=== PATIENT | female | born 1995 | race African-American/Black ===

== ENCOUNTER 2022-12-16 08:55 | Emergency (ER) | payer OTHER ==
[~2022-12-16] VITALS: Ht 154.9 cm; Wt 46.0 kg
[2022-12-16 09:52] LABS: CLARITY URINE CLEAR (CLEAR); COLOR URINE RED (YELLOW); KETONES URINE NEGATIVE (NEGATIVE); LEUKOCYTE ESTERASE URINE 1+ (NEGATIVE); NITRITE URINE NEGATIVE (NEGATIVE); OCCULT BLOOD URINE 3+ (NEGATIVE); PH URINE >=9.0 (4.5-8.0); PROTEIN URINE 1+ (NEGATIVE); SPECIFIC GRAVITY URINE 1.007 (1.005-1.030); UROBILINOGEN URINE 0.2 E.U./dL (0.2-1.0)
[2022-12-16 10:41] LABS: BASOPHILS % 0.5 % (0.0-2.0); EOSINOPHILS % 0.4 % (0.0-5.0); HEMOGLOBIN. 9.8 g/dL (12.0-16.0); LYMPHOCYTES % 17.7 % (20.0-50.0); MEAN CORPUSCULAR HEMOGLOBIN 26.2 pg (28.0-32.0); MEAN CORPUSCULAR VOLUME 80.3 fL (81.0-99.0); MEAN PLATELET VOLUME 10.5 fl (7.4-10.4); MONOCYTES % 7.2 % (2.0-8.0); NEUTROPHILS % 74.2 % (40.0-76.0); PLATELET 222 x1000/uL (130-400); RED BLOOD CELL COUNT 3.73 mill/uL (4.2-5.4); RED CELL DISTRIBUTION WIDTH 23.3 % (11.6-14.6)
[2022-12-16 10:50] LABS: CHLORIDE 111 mEq/L (98-107)
[2022-12-16] MEDS ORDERED: SODIUM CHLORIDE 0.9% 1,000 ML IV ONE (11:00)
[2022-12-16 11:09] LABS: PLATELET ESTIMATE NORMAL
[2022-12-16 11:12] LABS: B-HCG QUANTITATIVE 3230 mIU/mL (<3)
[2022-12-16 14:32] VITALS: BP 106/64
== END 2022-12-16 16:52 | disposition home or self-care (01) ==
LOC: ER 08:55
DX: O03.9 Complete or unspecified spontaneous abortion without complication (principal); Z3A.01 Less than 8 weeks gestation of pregnancy
CPT/HCPCS: 36415; 76801; 76817; 80053; 81003; 81025; 84702; 85025; 86850; 86900; 86901; 96360; 96361; 99285; Z7610

== ENCOUNTER 2022-12-18 11:08 | Emergency (ER) | payer OTHER ==
[~2022-12-18] VITALS: Ht 170.2 cm; Wt 47.6 kg
[2022-12-18 11:16] VITALS: BP 101/65
[2022-12-18 11:44] LABS: BASOPHILS % 0.9 % (0.0-2.0); EOSINOPHILS % 3.3 % (0.0-5.0); HEMATOCRIT. 29.5 % (36.0-48.0); HEMOGLOBIN. 9.7 g/dL (12.0-16.0); LYMPHOCYTES % 38.7 % (20.0-50.0); MEAN CORPUSCULAR HEMOGLOBIN 26.2 pg (28.0-32.0); MEAN PLATELET VOLUME 9.7 fl (7.4-10.4); MONOCYTES % 8.5 % (2.0-8.0); NEUTROPHILS % 48.6 % (40.0-76.0); PLATELET 242 x1000/uL (130-400); RED BLOOD CELL COUNT 3.68 mill/uL (4.2-5.4); RED CELL DISTRIBUTION WIDTH 22.8 % (11.6-14.6)
[2022-12-18 12:02] LABS: CHLORIDE 109 mEq/L (98-107)
[2022-12-18 12:11] LABS: B-HCG QUANTITATIVE 748 mIU/mL (<3)
[2022-12-18 12:55] LABS: PLATELET ESTIMATE NORMAL
[2022-12-18 13:01] LABS: CLARITY URINE CLOUDY (CLEAR); COLOR URINE ORANGE (YELLOW); KETONES URINE NEGATIVE (NEGATIVE); LEUKOCYTE ESTERASE URINE 1+ (NEGATIVE); NITRITE URINE NEGATIVE (NEGATIVE); OCCULT BLOOD URINE 3+ (NEGATIVE); PH URINE 5.5 (4.5-8.0); PROTEIN URINE 2+ (NEGATIVE); SPECIFIC GRAVITY URINE 1.025 (1.005-1.030)
[2022-12-18] MEDS ORDERED: CEPH250C2 MT (14:18)
== END 2022-12-18 14:48 | disposition home or self-care (01) ==
LOC: ER 12:53
DX: N39.0 Urinary tract infection, site not specified (principal)
CPT/HCPCS: 36415; 76801; 80053; 81003; 84702; 85025; 86850; 86900; 99284